=== PATIENT | male | born 1975 | race Caucasian/White ===

== ENCOUNTER 2020-05-08 22:37 | Emergency (ER) | payer MEDICAID, SELFPAY ==
--- NOTE | 2020-05-08 22:39 | USR_ITS ---
PROCEDURE INFORMATION: Exam: US Scrotum Exam date and time: 05/08/2020 12:06 AM Age: 44 years old Clinical indication: Scrotum pain; Additional info: Testicle pain TECHNIQUE: Imaging protocol: Real-time ultrasound of the scrotum and contents with color Doppler and image documentation. COMPARISON: No relevant prior studies available. FINDINGS: Right testicle: Normal. No mass. No torsion. Normal vascular flow. Left testicle: Normal. No mass. No torsion. Normal vascular flow. Epididymides: Left epididymis demonstrates several epididymal cyst. Right epididymis demonstrates several epididymal cysts. Scrotum: Moderate right hydrocele. Moderate left hydrocele. US/US scrotum [id number] IMPRESSION: 1. Testicles demonstrate color blood flow bilaterally 2. Moderate right hydrocele. 3. Moderate left hydrocele. 4. Left epididymis demonstrates several epididymal cyst. 5. Right epididymis demonstrates several epididymal cysts.
[2020-05-08 23:01] VITALS: BP 124/78; PULSE 89; RESP 18; TEMP 36.9; O2SAT 98; BMI 23.1
--- NOTE | 2020-05-09 00:18 | ED_ITS ---
HPI - Male Genitourinary General: Chief complaint: Urogenital-Male Stated complaint: testicle pain Time Seen by Provider: 05/08/20 23:55 History of Present Illness: HPI Narrative: Patient presents with 3-day history of left testicular pain that is worsening. Is able to urinate denies any penis discharge MD Complaint: testicle pain and testicle swelling Onset (ago): day(s) Duration: constant and progressively worsening Location: left testicle Severity: severe Severity scale (1-10): 7 Quality: aching Relieving factors: none Exacerbating factors: none Associated symptoms: Reports no associated symptoms and other (Patient is having unprotected sex); Deny nausea or vomiting Review of Systems Const: Denies: fever(s), chills or body aches Eyes: Denies: change in vision or blurry vision ENMT: Denies: throat pain or nasal congestion Card: Denies: chest pain or dyspnea on exertion Resp: Denies: dyspnea, productive cough or non-productive cough GI: Denies: abdominal pain, nausea or vomiting : Reports: testicular pain and scrotal swelling; Denies: difficulty urinating Musc: Denies: extremity pain Skin/Breast: Denies: rash Neuro: Denies: headache(s) Psych: Denies: anxiety or depression Federico/Lymph: Denies: easy bruising Physical Exam Const: COMMON NORMALS: no acute distress, average body habitus and patient oriented x3 HENMT: COMMON NORMALS: normocephalic HEAD & SCALP: normal to inspection and normocephalic FACE & SINUS: normal facial exam Eye: COMMON NORMALS: conjunctivae normal GENERAL EYE: appearance normal, both eyes and all related structures CONJUNCTIVA: Yes conjunctivae normal Neck/C-Spine: COMMON NORMALS: no JVD Chest: COMMONS NORMALS: normal inspection of the chest Resp: COMMON NORMALS: normal respiratory effort and clear to auscultation bilaterally AUSCULTATION: clear to auscultation bilaterally Cardio: COMMON NORMALS: no JVD, regular rate and regular rhythm RATE: regular rate RHYTHM: regular rhythm GI: COMMON NORMALS: Normal to inspection, nondistended, normoactive bowel sounds present : TESTES: Yes testicular swelling Testicular swelling laterality: left and Yes testicular tenderness Testicular tenderness laterality: left Extremity: COMMON NORMALS: normal to inspection and full ROM Neuro: COMMON NORMALS: patient oriented x3 Course Vital Signs: Vital signs: Vital Signs Temperature 98.5 F 05/08/20 23:01 Pulse Rate 89 05/08/20 23:01 Respiratory Rate 18 05/08/20 23:01 Blood Pressure 124/78 05/08/20 23:01 Pulse Oximetry 98 05/08/20 23:01 Coding Level of Care Code ED [employer] [facility] Exam Comprehensive
[2020-05-09] MEDS: cefTRIAXone 1,000 mg SDV 1000 MG IM (00:43)
[2020-05-09] MEDS: azithromycin 250 mg Tablet 1000 MG PO (00:45)
[2020-05-09] MEDS: HYDROcodone-acetaminophen 7.5-325 mg Tablet 1 TAB PO (00:45)
[2020-05-09 00:49] VITALS: BP 118/88; PULSE 75; RESP 16; O2SAT 98
[2020-05-09 00:51] VITALS: BP 102/60; PULSE 88; RESP 16; O2SAT 98
[2020-05-09 01:31] LABS: Bilirubin Urine Neg (NEGATIVE); Blood Urine 2+ (Negative); Glucose Urine UA Norm (Normal); Ketones Urine Negative (Negative); Nitrate Urine Negative (Negative); Protein Urine 1+ (Negative); Urine Color Yellow (Yellow); Urobilinogen Urine 1 mg/dL (Negative); pH Urine 7 (5-7)
[2020-05-09 01:32] LABS: Add Urine Microscopic? YES; Leukocyte Esterase Urine 2+ (Negative)
[2020-05-09 01:44] LABS: Add Urine Culture? Yes; Amorphous Sediment Urine 4+; Bacteria Urine 4+; Squamous Epithelial Cell Urine 0-4 (0-5); WBC Urine TOO NUMEROUS TO CNT /hpf (0-5)
== END 2020-05-09 00:54 | disposition home or self-care (01) ==
PROVIDERS: Emergency Medicine; Emergency Provider Nurse Practitioner Family; PCP Physician Assistant Medical
DX: N50.812 Left testicular pain (principal)
CPT/HCPCS: 12345; 76870; 81001; 87086; 87491; 87591; 96372; 99283; J0696; Q0144